=== PATIENT | female | born 1990 | race Caucasian/White ===

== ENCOUNTER 2018-03-06 18:42 | Emergency (ER) | payer BC, OTHER ==
[2018-03-06] MEDS ORDERED: NS 1,000 ML IV ONE (18:46)
--- NOTE | 2018-03-06 19:04 | EDPHY ---
H & P Time Seen by Provider: 03/06/18 18:45 HPI/ROS: HPI Right lower abdominal pain. 27-year-old female with boyfriend. This patient complains of right lower quadrant abdominal pain which she noticed about 4 days ago. He states that it was initially a dull ache but today became sharp and more intense. She also reports having a very weakly positive urine test 4 days ago. Significant surgical history, appendectomy in 2003. Last meal was lunch at around 2:00 p.m. Today. She had a bowel movement earlier this morning. Described as normal. No bloody or melenic stool. No urinary complaints. Last menstrual period ROS: Constitutional: No fever, no chills. No weakness. Eyes: No discharge. No changes in vision. ENT: No sore throat. No nasal congestion or rhinorrhea. Respiratory: No cough. No shortness of breath. Cardiac: No chest pain, no palpitations. Gastrointestinal: As above, no vomiting, no diarrhea. Genitourinary: No hematuria. No dysuria or increased frequency with urination. Musculoskeletal: No back pain. No neck pain. No myalgias or arthralgias. Skin: No rashes. Neurological: No headache. No focal weakness or altered sensation. Past medical history: Appendectomy, tonsillectomy, neck abscess. Social history: Nonsmoker. Here with boyfriend. No alcohol. Physical Exam: General Appearance: Alert, no distress. This patient is responding to questions appropriately and in full sentences. This patient appears well- hydrated and well-nourished. Eyes: Pupils equal and round no pallor or injection. No lid edema, erythema or injection. Respiratory: There are no retractions, lungs are clear to auscultation with good air movement bilaterally. Cardiovascular: Regular rate and rhythm. No murmur. Gastrointestinal: Abdomen is soft with mild tenderness on palpation of the right lower quadrant, no masses, bowel sounds normal. No focal tenderness at McBurney's point. No Sanches sign. Neurological: Motor sensory function is grossly intact. Cranial nerves are normal. Gait is normal. Skin: Warm and dry, no rashes. Musculoskeletal: No CVA tenderness on palpation. Extremities are symmetrical. All joints range without pain or impingement. Psychiatric: No agitation. No depression. Database: EKG: Imaging: Pelvic ultrasound: The right ovary is normal. No evidence of torsion. No cyst or other pathology noted. There is a 3 cm left ovarian cyst present. As part of the study the right kidney was partially visualized. This did show some associated echogenic lesions. 1 of which measured approximately 10 cm in diameter. Please see report for further details. Discussed with staff radiologist Dr. Fly Eason. Procedures: Emergency department course: Triage vital signs reviewed and are normal. IV was placed. She was started on IV normal saline with 500 cc to 1 L to be given over the next hour. Pelvic ultrasound to be obtained. 8:15 p.m., awaiting urinalysis, results of blood work and ultrasound discussed with the patient. Repeat abdominal exam she is soft, nontender nondistended. I discussed my conversation with Dr. Fly Eason. Emergent CT imaging is not required at this time. However, I explained to the patient that urology follow-up was important and that she would be imaged in managed appropriately as an outpatient by the Urology service. I explained that I wanted her to follow up with the Urology service this week. Urinalysis results pending. 8:45 p.m., patient re-evaluated, results of urinalysis discussed. She has 3+ leukocyte esterase and some white blood cells. She however does not have any symptoms. Urinalysis was sent for culture. I will send her home with a prescription for Keflex. Based on the culture results or if she becomes symptomatic this prescription can then be filled. She is in agreement with this plan. I again discussed the importance of urology follow-up this week. She understands this. She feels comfortable going home with her boyfriend. Return to emergency department precautions were reviewed with her. All of her questions were answered. She was discharged from the emergency department in good condition. Differential Diagnosis: The differential diagnosis on this patient includes but is not limited to ruptured ovarian cyst, ectopic , constipation, ovarian torsion. Appendectomy unlikely. This represents a partial list of diagnoses considered. These considerations are based on history, physical exam, past history, reassessment and diagnostic testing. Smoking Status: Never smoked Constitutional: Initial Vital Signs Temperature (C) 37.2 C 03/06/18 18:50 Heart Rate 81 03/06/18 18:50 Respiratory Rate 18 03/06/18 18:50 Blood Pressure 135/76 H 03/06/18 18:50 O2 Sat (%) 96 03/06/18 18:50 O2 Delivery Mode Room Air Allergies/Adverse Reactions: No Known Allergies Allergy (Unverified 03/06/18 18:53) Home Medications: Medication Instructions Recorded Hydrocodone/Acetaminophen [Vicodin 1 each PO Q4-6PRN PRN #10 tablet 03/30/15 5-300 mg Tablet] Cephalexin [Keflex (*)] 500 mg PO Q6 5 Days cap 03/06/18 Progesterone 03/06/18 Medical Decision Making - Data Points Laboratory Results: Laboratory Results 03/06/18 19:06 03/06/18 19:06 Microbiology Results: MICROBIOLOGY 03/06/18 19:00 Urine,Clean Catch Urine Culture - Final Five Or More [place] Types Medications Given: Discontinued Medications Sodium Chloride (Ns) 1,000 mls @ 0 mls/hr IV ONCE ONE; Wide Open PRN Reason: Protocol Stop: 03/06/18 18:47 Last Admin: 03/06/18 19:11 Dose: 1,000 mls Departure - Departure Disposition: Home, Routine, Self-Care Clinical Impression: Right lower quadrant abdominal pain, Pyuria, Right kidney mass Condition: Good Instructions: Urinary Tract Infection in Women (ED), Acute Abdominal Pain (ED) Additional Instructions: Read and follow provided instructions. Follow-up with Urology, Dr. Parul Tierney, this week as discussed for re- evaluation and further management. Call her office tomorrow morning for appointment time. Explain this is for an emergency department follow-up for a mass involving your right kidney. She will have access to the test results and documentation from your visit today. I have prescribed you an antibiotic, Keflex, if you develop burning with urination, fever increased frequency with urination you can fill this prescription for treatment of urinary tract infection. We have also cultured your urine and if it is has a positive result you will be contacted. Return to the emergency department for worsening symptoms, return of pain, fever , vomiting or other serious concerns. Referrals: Parul Smith MD [Medical Doctor] - As per Instructions Prescriptions: Cephalexin [Keflex (*)] 500 mg PO Q6 5 Days cap
[2018-03-06 19:32] LABS: PLATELET COUNT 204 10^3/uL (150-400)
[2018-03-06 20:54] VITALS: BP 116/81
== END 2018-03-06 20:54 | disposition home or self-care (01) ==
DX: R10.31 Right lower quadrant pain (principal); N39.0 Urinary tract infection, site not specified; N28.9 Disorder of kidney and ureter, unspecified; E86.9 Volume depletion, unspecified

== ENCOUNTER → 2018-04-15 | Day surgery (SDC) | payer OTHER ==
[~2018-04-15] MED LIST: DEXMEDETOMIDINE HCL 200 MCG in NS 50 ML IV ONE; FLUMAZENIL 0.5 MG/5 ML MDV IVP PRN; IOPAMIDOL (ISOVUE-300) 100 ML BTL ONE; KETOROLAC 30 MG/1 ML SDV IVP ONE; MEPERIDINE 25 MG/ML SYR IVP PRN; MIDAZOLAM 2 MG/2 ML VIAL ONE; NALOXONE HCL 0.4 MG/ML INJ IVP PRN; NITROGLYCERIN/D5W 50 MG/250 ML BOTTLE IV ONE; NS 1,000 ML IV SCH; ONDANSETRON 4 MG/2 ML VIAL IVP ONE; ONDANSETRON 4 MG/2 ML VIAL IVP PRN; OXYCODONE/APAP 5/325 TAB PO PRN; VERAPAMIL 5 MG/2 ML VIAL IVP ONE; VERAPAMIL IVP ONE; fentaNYL 100 MCG/2 ML INJ IVP PRN; fentaNYL 100 MCG/2 ML INJ ONE
[2018-04-15 10:40] LABS: INR 1.01 (0.83-1.16); PROTIME(PATIENT) 13.5 SEC (12.0-15.0)
--- NOTE | 2018-04-15 11:25 | PDPROPOC ---
Sedation Plan of Care Sedation Plan of Care: vital signs stable, mental status noted, patient educated of risks, benefits, alternatives, patient can tolerate sedation ASA Classification: ASA 1 Planned drugs: fentanyl, midazolam Mallampati Score: Class 1 Mallampati Reference Image: Patient passed 3-3-2 rule?: Yes
--- NOTE | 2018-04-15 11:25 | PDGENHP ---
History & Physical Chief Complaint: RT AML History of Present Illness: INCIDENTAL RT RENAL AML. Pertinent Past, Social, Family History: GOING THROUGH [facility]. Relevant Physical Exam: NO DISTRESS. NON SMOKER. Cardiorespiratory Assessment: RRR, CTA
[2018-04-15] MEDS: MIDAZOLAM 2 MG/2 ML VIAL IVP PRN ×2 (11:29→14:03)
[2018-04-15 14:01] VITALS: BP 93/44
--- NOTE | 2018-04-15 14:37 | PDRADPN ---
Radiology Procedure Note Date of Procedure: 04/15/18 Radiologist: Iris Pillai Anesthesia: IV Sedation Pre-op Diagnosis: large RT AML Post-op Diagnosis: SAME Indication: increased risk of bleeding with rupture Procedure: RT renal angiogram, AML embolization Inf/Abcess present in the surg proc area at time of surgery?: No
== END | disposition home or self-care (01) ==
LOC: FIMAGING 09:00
PROVIDERS: ATTEND Radiology Diagnostic Radiology
DX: D17.71 Benign lipomatous neoplasm of kidney (principal)
CPT/HCPCS: 37242; 76937; 99152; 99153; C1769; C1892; C1894; C1760; J1200; J1644; J1885; J2250; J2310; J2405; J3010; Q9967

== ENCOUNTER 2018-04-16 05:39 | Emergency (ER) | payer OTHER ==
[2018-04-16] MEDS ORDERED: ONDANSETRON 4 MG/2 ML VIAL ONE (06:02)
[2018-04-16] MEDS ORDERED: ONDANSETRON 4 MG/2 ML VIAL IVP ONE ×2 (06:03→08:42)
[2018-04-16] MEDS ORDERED: HYDROmorphONE/DILAUDID 2 MG/ML INJ IVP ONE (06:03)
[2018-04-16] MEDS ORDERED: NS 1,000 ML IV ONE (06:03)
[2018-04-16] MEDS ORDERED: HYDROmorphONE/DILAUDID 2 MG/ML INJ ONE (06:03)
[2018-04-16 06:09] LABS: PLATELET COUNT 176 10^3/uL (150-400)
--- NOTE | 2018-04-16 06:12 | EDPHY ---
H & P Stated Complaint: KIDNEY MASS EMBOLISATION YEST, PAIN AND VOMIT X7 SINCE 5PM Time Seen by Provider: 04/16/18 05:52 HPI/ROS: HPI The patient presents with right flank and abdominal pain which has been present since about 5:00 p.m. Yesterday which has been persistent. 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 She felt well in the recovery room but when she was discharged had ongoing pain which is achy, worse with movement and prevented her firm sleeping for much of the evening. She also has at about 8 episodes of nonbloody nonbilious emesis. She has been able to urinate. She denies any dysuria or hematuria. REVIEW OF SYSTEMS 10 systems were reviewed and negative with the exception of the elements mentioned in the history of present illness. 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, undergoing International [employer] I Soc Hx: Housed PHYSICAL General Appearance: Alert, no distress Eyes: Pupils equal and round no pallor or injection ENT, Mouth: Mucous membranes moist Respiratory: There are no retractions, lungs are clear to auscultation Cardiovascular: Regular rate and rhythm Gastrointestinal: Abdomen is soft and tender in the right upper and lower quadrants as well as right flank, no masses, bowel sounds normal Neurological: A&O, moves all extremities Skin: Warm and dry, surgical incision site in the right groin has a dressing which is clean dry and intact Musculoskeletal: Neck is supple non tender Extremities: symmetrical, full range of motion Psychiatric: Patient is oriented X 3, there is no agitation Source: Patient Exam Limitations: No limitations - Personal History LMP (Females 10-55): 1-7 Days Ago Current Tetanus/Diphtheria Vaccine: Yes - Medical/Surgical History Hx Asthma: No Hx Chronic Respiratory Disease: No Hx Diabetes: No Hx Cardiac Disease: No Hx Renal Disease: No Hx Cirrhosis: No Hx Alcoholism: No Hx HIV/AIDS: No Hx Splenectomy or Spleen Trauma: No Other PMH: Appy, tonsilectomy, neck abcess, KIDNEY MASS: ANGIOMYOLIPOMA - Social History Smoking Status: Never smoked Constitutional: Initial Vital Signs Temperature (C) 37.1 C 04/16/18 05:43 Heart Rate 86 04/16/18 05:43 Respiratory Rate 18 04/16/18 05:43 Blood Pressure 123/80 H 04/16/18 05:43 O2 Sat (%) 98 04/16/18 05:43 O2 Delivery Mode Room Air Allergies/Adverse Reactions: Iodinated Contrast- Oral and IV Dye Allergy (Intermediate, Verified 04/16/18 05: 43) fentanyl Allergy (Mild, Verified 04/16/18 05:43) Home Medications: Medication Instructions Recorded Ibuprofen 200 mg PO PRN PRN 04/15/18 HYDROmorphone HCL [Dilaudid 2 mg 2 mg PO Q4H PRN #30 tab 04/16/18 (*)] Ondansetron Odt [Zofran Odt 4 mg 4 mg PO Q4 PRN #10 tab 04/16/18 (*)] Medical Decision Making - Diagnostics Imaging Results: Ultrasound right kidney shows renal mass without any sign of bleeding or post procedure complication, discussed with Dr. Pillai of Radiology. Imaging: Discussed imaging studies w/ call specialist Radiologist Differential Diagnosis: 27-year-old female status post IR guided percutaneous embolization of artery of angiomyolipoma of her right kidney presents with pain of her right abdomen and flank with nausea and vomiting since she was discharged. Here, vital signs are normal, she does have tenderness in the area. Differential diagnosis includes postsurgical pain, hemorrhage, infection. Plan for basic labs, ultrasound, IR consult. In the emergency department, patient improved significantly after receiving Dilaudid and Zofran IV. Labs were checked and were unremarkable. Ultrasound was consistent with postprocedural changes without any signs of bleeding or infection. I offered patient admission to the hospital, however she would like to try and go home, however would like a little bit more time to be observed in the emergency department. - Data Points Laboratory Results: Laboratory Results 04/16/18 05:55 04/16/18 05:55 04/16/18 04/16/18 05:55 05:55 WBC 12.67 10^3/uL H 10^3/uL (3.80-9.50) RBC 4.74 10^6/uL 10^6/uL (4.18-5.33) Hgb 14.6 g/dL g/dL (12.6-16.3) Hct 42.8 % % (38.0-47.0) MCV 90.3 fL fL (81.5-99.8) MCH 30.8 pg pg (27.9-34.1) MCHC 34.1 g/dL g/dL (32.4-36.7) RDW 12.6 % % (11.5-15.2) Plt Count 176 10^3/uL 10^3/uL (150-400) MPV 10.4 fL fL (8.7-11.7) Neut % (Auto) 85.9 % H % (39.3-74.2) Lymph % (Auto) 9.0 % L % (15.0-45.0) [place] % (Auto) 4.6 % % (4.5-13.0) Eos % (Auto) 0.0 % L % (0.6-7.6) Baso % (Auto) 0.1 % L % (0.3-1.7) Nucleat RBC Rel Count 0.0 % % (0.0-0.2) Absolute Neuts (auto) 10.89 10^3/uL H 10^3/uL (1.70-6.50) Absolute Lymphs (auto) 1.14 10^3/uL 10^3/uL (1.00-3.00) Absolute Monos (auto) 0.58 10^3/uL 10^3/uL (0.30-0.80) Absolute Eos (auto) 0.00 10^3/uL L 10^3/uL (0.03-0.40) Absolute Basos (auto) 0.01 10^3/uL L 10^3/uL (0.02-0.10) Absolute Nucleated RBC 0.00 10^3/uL 10^3/uL (0-0.01) Immature Gran % 0.4 % % (0.0-1.1) Immature Gran # 0.05 10^3/uL 10^3/uL (0.00-0.10) Sodium 136 mEq/L mEq/L (135-145) Potassium 3.9 mEq/L mEq/L (3.5-5.2) Chloride 106 mEq/L mEq/L (97-110) Carbon Dioxide 20 mEq/l L mEq/l (22-31) Anion Gap 10 mEq/L mEq/L (6-14) BUN 15 mg/dL mg/dL (7-23) Creatinine 0.7 mg/dL mg/dL (0.6-1.0) Estimated GFR > 60 Glucose 122 mg/dL H mg/dL (70-100) Calcium 9.3 mg/dL mg/dL (8.5-10.4) Medications Given: Discontinued Medications Hydromorphone HCl (Dilaudid) 0.5 mg IVP EDNOW ONE Stop: 04/16/18 06:04 Last Admin: 04/16/18 06:05 Dose: 0.5 mg Sodium Chloride (Ns) 1,000 mls @ 0 mls/hr IV EDNOW ONE; Wide Open PRN Reason: Protocol Stop: 04/16/18 06:04 Last Admin: 04/16/18 06:06 Dose: 1,000 mls Ondansetron HCl (Zofran) 4 mg IVP EDNOW ONE Stop: 04/16/18 06:04 Last Admin: 04/16/18 06:05 Dose: 4 mg Departure - Departure Disposition: Home, Routine, Self-Care Clinical Impression: Right sided abdominal pain, Angiomyolipoma of right kidney Condition: Good Instructions: Flank Pain (ED) Referrals: Iris Pillai MD [Medical Doctor] - As per Instructions Prescriptions: HYDROmorphone HCL [Dilaudid 2 mg (*)] 2 mg PO Q4H PRN #30 tab PRN Reason: Pain, Breakthrough Ondansetron Odt [Zofran Odt 4 mg (*)] 4 mg PO Q4 PRN #10 tab PRN Reason: Nausea/Vomiting, Can'T Take Po
[2018-04-16] MEDS ORDERED: KETOROLAC 15 MG/1 ML SDV IVP ONE (07:02)
[2018-04-16] MEDS ORDERED: ONDANSETRON 4MG PREPACK#2 BTL TAKEHOME ONE (08:36)
[2018-04-16 09:00] VITALS: BP 140/77
== END 2018-04-16 08:59 | disposition home or self-care (01) ==
DX: D17.71 Benign lipomatous neoplasm of kidney (principal); G89.18 Other acute postprocedural pain; E86.9 Volume depletion, unspecified
CPT/HCPCS: 96374; J1170; J1885; J2405

== ENCOUNTER → 2018-08-08 | Outpatient (CLI) | payer OTHER | LOC: FIMAGING 14:04 | PROVIDERS: ATTEND Urology | DX: N28.89 Other specified disorders of kidney and ureter (principal) ==